=== PATIENT | male | born 1930 | race Caucasian/White ===

== ENCOUNTER 2016-07-24 05:54 | Day surgery (SDC) | payer MEDICARE, BC ==
[~2016-07-24] VITALS: Ht 167.6 cm; Wt 76.0 kg
[~2016-07-24 05:54] MED LIST: AMOX500T10 PO; CA C1TAB81 PO; CALC625T PO; FLUT9.9S EA NOSTRIL; GLUC1CAP64 PO; LEVO75TA10 PO; LISI-127 PO; METO25TA41 PO; SIMV40TA82 PO; WARF3TAB24 PO; [UNRECOGNIZED DRUG - CODE] PO
--- OUTSIDE RECORDS SUMMARY | 2016-07-24 05:58 | XMS REPORT | Continuity of Care Document ---
Author Author [facility] Organization [facility] Address Unknown Phone Unavailable Allergies Medications Problems Procedures Results Encounters ACCT No. Visit Date/Time Discharge Status Pt. Type Provider Facility Loc./Unit Complaint [id number] 07/01/2013 12:56:00 07/01/2013 23 :59:59 CLS Outpatient
--- OUTSIDE RECORDS SUMMARY | 2016-07-24 05:58 | XMS REPORT | Continuity of Care Document ---
Author Author Di Mustafa MA [facility] Ambulatory Address [address] [place] [address] Phone Care Team Providers Care Burn Table Operator Name Role Phone Mat Bush PP Unavailable Payers Payer name Insurance type Covered republican ID Authorization(s) Unknown Problems Condition Effective Dates (start - stop) Clinical Status Neural hearing loss - *Chronic Impacted cerumen - *Acute Personal history of malignant neoplasm of prostate - *Controlled Personal history of malignant neoplasm of prostate - *Poor control Hearing loss - *Chronic Otitis externa - *Acute Hearing loss - *Chronic Cerumen impaction - *Chronic Otitis externa - *Chronic Personal history of malignant neoplasm of prostate - *Fair Control Personal history of urinary calculi - *Controlled SENSONEUR HEAR LOSS ASYM - Impacted cerumen - *Acute Family History Family Member Diagnosis Age At Onset Status Unknown Social History Social History Element Description Quantity Unknown Allergies, Adverse Reactions, Alerts Substance Reaction Severity Status MELOXICAM swollen feet, high blood press Unknown Medications Medication Instructions Dosage Effective Dates (start - stop) Status simvastatin 40 mg tablet take 1 tablet (40MG) by oral route every day in the evening 40 MG - Active lisinopril 10 mg tablet take 1 tablet (10MG) by oral route every day 10 MG - Active Coumadin 3 mg tablet take 1 tablet (3MG) by oral route every day 3 MG - Active metoprolol tartrate 25 mg tablet take 1 tablet (25MG) by oral route 2 times every day 25 MG - Active Multiple Vitamins tablet take 1 by Oral route take 1 every other day 0 - Active glucosamine HCl 1,500 mg tablet take 1 by Oral route take one every other day 0 - Active Immunizations Vaccine Date Status Comments Unknown Results Test Name Date and Time Measure Units Reference Range Abnormal Flag Comments Unknown Vital Signs Date / Time: Height Weight Pulse Rate Blood Pressure Temperature /12:56:00 66.00 in 171.00 lbs 97.5 F Procedures Procedure Date Unknown Encounters Encounter Location Date Patient Visit [facility] Patient Visit [facility] Patient Visit [facility] Patient Visit [facility] Patient Visit [facility] Patient Visit [facility] Patient Visit [facility] Patient Visit [facility] Advance Directives Directive Effective Date Unknown
[2016-07-24 06:34] VITALS: Ht 167.6 cm; Wt 76.0 kg
[2016-07-24 06:36] VITALS: BP 128/53; PULSE 50; RESP 14; TEMP 97.9; O2SAT 97
[2016-07-24 06:52] VITALS: PULSE 45
[2016-07-24] MEDS ORDERED: LR 1,000 ML IV SCH (07:00)
[2016-07-24] MEDS ORDERED: LIDOCAINE 1% (10mg/ml) 2ml SDV INJ ONE (07:00)
[2016-07-24] MEDS ORDERED: PROPOFOL 500mg 50 ML IV ONE (07:25)
[2016-07-24] MEDS ORDERED: GLYCOPYRROLATE 0.4mg/2ml INJECTION ONE (07:25)
[2016-07-24] MEDS ORDERED: EPHEDRINE SULFATE 50mg/ml INJECTION ONE (08:04)
[2016-07-24 08:25] VITALS: BP 112/57; PULSE 62; RESP 14; TEMP 96.9; O2SAT 99
[2016-07-24 08:40] VITALS: BP 123/57; PULSE 66; RESP 16; O2SAT 98
--- NOTE | 2016-07-24 08:40 | NUR ---
PRESCRIPTION CALLED [facility] AT THIS TIME FOR THE PRESCRIPTION OF PANTOPRAZOLE 40MG X1 AM #30, [address] VALE
--- NOTE | 2016-07-24 08:45 | ANESPREOP ---
Anesthesia Record Date and Time DATE: 07/24/16 TIME: 08:43 Proposed Surgical Procedure COLONOSCOPY & ESOPHAGOGASTRODUODENOSCOPY Allergies: Coded Allergies: cetirizine (Verified Allergy, Unknown, RAPID HEART RATE, 07/24/16) erythromycin base (Verified Allergy, Unknown, 07/24/16) meloxicam (Verified Allergy, Unknown, FEET SWELL, LEGS BROKE OUT, HTN, STOMACH SWELLED, 07/24/16) tramadol (Verified Allergy, Unknown, HALLUCINATIONS, 07/24/16) Ht/Wt/BMI Height: 5 ' 6.00 " Weight: 76.000 kg BMI: 27.0 kg/m2 Vital Signs Date Time Temp Pulse Resp B/P Pulse Ox O2 Delivery O2 Flow Rate FiO2 07/24/16 08:25 96.9 62 14 112/57 99 Nasal Cannula 6.00 Medications Inpatient Medications Current Medications Medications (Trade) Dose Ordered Sig/Ghazal Start Time Stop Time Status Last Admin Dose Admin Lactated Ringer's (Lactated Ringers) 1,000 ml @ 50 mls/hr Q20H 07/24/16 07:00 07/24/16 07:08 50 MLS/HR Amoxicillin Trihydrate (Amoxicillin) 500 Mg Tablet, 2,000 MG PO 1 HR PRIOR TO APPTS, (Reported) Last Taken: on Unknown Date & Time Aspirin (Aspirin Low Dose) 81 Mg Tablet.dr, 81 MG PO DAILY, (Reported) Last Taken: on 07/17/16 Ca Cmb No.1/Vit D3/B-6/Fa/B12 (Vitamin D3 1,000 Unit Tablet) 1 Each Tablet, 1 EACH PO DAILY, (Reported) Last Taken: on 07/23/16 1900 Calcium Polycarbophil (Fibercon) 625 Mg Tablet , 1 TAB PO DAILY, (Reported) Last Taken: on 07/22/16 Fluticasone Propionate (Flonase Allergy Relief 50 mcg/actuation Nasal) 9.9 Ml [place].susp, 2 SPRAY EA NOSTRIL DAILY, (Reported) Last Taken: on 07/23/16 0700 Gluc Snowden/Chondro Snowden A/Vit C/Mn (Glucosamine 1, 500 Complex Cap) 1 Cap Capsule, 1 CAP PO EOD, (Reported) Last Taken: on 07/22/16 Levothyroxine Sodium (Levothyroxine Sodium) 75 Mcg Tablet, 75 MCG PO ACB, (Reported) Once daily before breakfast. 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 smoked today?: No Use Chewing Tobacco?: No Past Surgical History Orthopedic Surgeries: Yes - R-RCR Abdominal Surgeries: Yes - RT ING HERNIA REPAIR Genitourinary Surgeries: Yes - RADICAL PROSTATECTOMY 2002, R HYDROCELE Cardiac Surgeries: Yes - AORTIC VALVE REPLACEMENT, CARDIOVERSION Endocrine Surgeries: No Reproductive Surgeries: No Neurological Surgeries: No Ear Surgeries: No Nose Surgeries: No Throat Surgeries: No Other Surgeries: Yes - COLONOSCOPY; MOHS RT PRESYBETERIAN; B CATARACTS Physical Exam Respiratory: Bilat breath sounds equal, Lungs clear Cardiovascular: FOUND Regular rate, rhythm, FOUND Extra beats Airway Assessment Mallampati Score: I TMD: 3 Fingerbreadths Neck Extension: Good Overall Assessment: No Airway Concerns ASA: 3 Plan Anesthesia Plan: TIVA Discussion Discussed risks/options/alternatives of anesthesia and questions answered. Patient consents. Nursing pain assessment noted. Present: Spouse Attestation Statement Prior to the delivery of any anesthetic medication, I examined the patient, developed the plan, obtained the patient's consent and discussed the risk and benefits of the procedure with the patient/guardian. SUHA HOFF MD Jul 24, 2016 08:45
--- NOTE | 2016-07-24 08:48 | ANESPO ---
Post-Op Note Date 07/24/16 Time: 08:46 Status Pt Participated in Evaluation: Pt participated in person Vital Signs Date Time Temp Pulse Resp B/P Pulse Ox O2 Delivery O2 Flow Rate FiO2 07/24/16 08:25 96.9 62 14 112/57 99 Nasal Cannula 6.00 Respiratory Function: Airway patent Cardiovascular Function: Regular pulse Mental Status: Alert/oriented Pain Level Intensity: 0 Hydration: IV infusing Complications during Recovery None apparent Follow-Up Instructions Instructions Per Surgeon SUHA HOFF MD Jul 24, 2016 08:48
[2016-07-24 08:55] VITALS: BP 128/58; PULSE 70; RESP 16; O2SAT 96
--- NOTE | 2016-07-24 09:00 | NUR ---
APPOINTMENT F/U APT MADE FOR PT WITH DR VALE PENNY July AT [id number]
[2016-07-24 09:10] VITALS: BP 138/62; PULSE 62; RESP 16; O2SAT 98
--- NOTE | 2016-07-24 09:55 | OPNOTEF ---
DATE OF PROCEDURE: 07/24/2016 SURGEON : Mat Bush MD PREOPERATIVE DIAGNOSES Colorectal cancer surveillance/anemia/heme-positive stool. POSTOPERATIVE DIAGNOSES Colorectal cancer surveillance/anemia/heme-positive stool, colonic polyp x 1 located at 65 cm from the anal verge/diverticulosis. PROCEDURE: Colonoscopy with polypectomy via hot forceps technique. ANESTHESIA: TIVA. BRIEF HISTORY/INDICATIONS Jeffrey is an 85-year-old patient of mine who was seen in the office for just not feeling well, some stool changes and was found to be anemic with heme-positive stools. He was due for a colonoscopy in 2018 due to a history of polyps. Decision was made to proceed due to his symptoms and lab results. For completeness, please refer to office notes. FINDINGS Upon colonoscopy there was no evidence for angiodysplastic lesions or cinthia malignancies. The patient was found to have mild diverticulosis. The patient was also found to have a small flat polyp at 65 cm from the anal verge. There was no active bleeding and/or explanation for his symptoms within his colon. The polyp was removed and sent to pathology. DESCRIPTION OF PROCEDURE After informed consent was obtained, the patient was brought to the endoscopy suite and placed on the table in the left lateral decubitus position. The patient subsequently underwent total intravenous anesthesia by the nurse plastic straightening roll operator per my request. Next, a digital rectal examination was performed; normal sphincter tone. No rectal masses were appreciated. An Olympus colonoscope was inserted in the anus and advanced with the lumen of the colon under direct visualization at all times until the cecum was ascertained. Triangulation of the tenia coli, ileocecal valve and appendiceal lumen were all visualized. The scope was then slowly withdrawn, again while maintaining visualization of the lumen at all times. As stated above, the entire colon was without evidence for angiodysplastic lesions or cinthia malignancies. The patient was found to have mild diverticulosis. The patient was found to have one small flat polyp as described above. Polyp was removed and photographs were obtained for documentation. The scope continued to be withdrawn until it was removed from the patient's anal verge. The patient tolerated the procedure without difficulty and was sent back to the preoperative area in stable condition. I have asked Jeffrey to come back and see me in 1-2 weeks to discuss his pathology as well as his symptoms. ALEJANDRA
--- NOTE | 2016-07-24 10:17 | OPNOTEF ---
DATE OF PROCEDURE: 07/24/2016 SURGEON: Mat Bush MD PREOPERATIVE DIAGNOSES Anemia back/melena. POSTOPERATIVE DIAGNOSES Anemia back/melena, small gastric ulcer, mild gastritis, horseshoe stomach, duodenal polyp. PROCEDURE: Esophagogastroduodenoscopy with biopsies. ANESTHESIA: IV sedation and local. BRIEF HISTORY/INDICATIONS Jeffrey is an 85-year-old patient of mine who was seen in the office for some stool changes, weakness, etc. Testing was done which discovered heme-positive stool and Jeffrey also had been complaining of melena. Decision was made to proceed with endoscopy for diagnostic purposes. 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 I was able to intubate the duodenum, at which time I found a large duodenal polyp. It did appear benign to the naked eye. Biopsies were taken. A biopsy was taken for LATASHA. There was some irritation in the fundus and a small ulcer which was biopsied and some more irritated mucosa that was biopsied. Distal esophagus was normal and the remainder of the esophagus was normal.. DESCRIPTION OF PROCEDURE After informed consent was obtained, the patient was brought to the operative suite and placed on the table in the left lateral decubitus position. Patient was then given Versed and Demerol intravenously in a titrated fashion to provide adequate sedation. Patient's oral hypopharynx was also anesthetized with Cetacaine Wood as well as viscous Lidocaine. Next, an Olympus gastroscope was inserted into the oral hypopharynx and subsequently the esophagus under direct visualization. The scope was then advanced through the esophagus, stomach, pylorus, duodenal bulb, into the second portion of the duodenum. The scope was then slowly withdrawn. First and second portions of the duodenum were without noted abnormalities other than the above-mentioned polyp. This polyp was large but it did appear benign. Two biopsies were taken for pathology. The scope was then withdrawn back into the prepyloric region. No abnormalities were appreciated within the antrum. I did do a biopsy for LATASHA. A J-maneuver was then performed. Fundus was irritated with a small ulcer which was biopsied. There was some irritated mucosa as well that was biopsied. There was no evidence for significant hiatal hernia. He did have a tiny one. The scope was then allowed to straighten and the remaining corpus of the stomach was well visualized without noted abnormalities. Scope was then withdrawn back to the level of the diaphragm which was also the level of the squamocolumnar junction. Squamocolumnar junction was well demarcated with no evidence of Collazo's metaplasia. There was no evidence for stricture formation. Additionally, there was no evidence for ulcerations. Scope was then continued to be slowly withdrawn and the remaining esophagus was found to be within normal limits. Patient tolerated the procedure without difficulty and was sent back to the recovery room in stable condition. Again, I have asked Jeffrey to come back and see me in clinic in 1-2 weeks to discuss the pathology. It is possible that his stomach and the tiny ulcer were the cause of his issues. Will see how he does postop. ALEJANDRA
== END 2016-07-24 09:30 | disposition home or self-care (01) ==
LOC: NSC 05:54
PROVIDERS: ATTEND Family Medicine
DX: D12.6 Benign neoplasm of colon, unspecified (principal); K57.30 Diverticulosis of large intestine without perforation or abscess without bleeding; R19.5 Other fecal abnormalities; R15.9 Full incontinence of feces; K25.7 Chronic gastric ulcer without hemorrhage or perforation; K29.60 Other gastritis without bleeding; Q40.2 Other specified congenital malformations of stomach; K29.80 Duodenitis without bleeding; K31.7 Polyp of stomach and duodenum; D64.9 Anemia, unspecified; I10 Essential (primary) hypertension; E78.5 Hyperlipidemia, unspecified; J30.2 Other seasonal allergic rhinitis; Z95.2 Presence of prosthetic heart valve; Z79.899 Other long term (current) drug therapy; Z79.82 Long term (current) use of aspirin; Z79.01 Long term (current) use of anticoagulants
CPT/HCPCS: 43239; 45384; 87081; J7120